=== PATIENT | male | born 1960 | race Caucasian/White ===

== ENCOUNTER 2017-08-01 07:09 | Day surgery (SDC) | payer OTHER ==
[2017-08-01] MEDS ORDERED: Lactated Ringer's 500 ML IV ONE (08:06)
[2017-08-01] MEDS ORDERED: Midazolam 2 MG/2 ML VIAL ONE (09:43)
[2017-08-01] MEDS ORDERED: Propofol 10 mg/ml Inj (20 ML) ONE (09:43)
[2017-08-01 10:33] VITALS: BP 119/64; PULSE 72; RESP 17; TEMP 98; O2SAT 100
== END 2017-08-01 10:35 | disposition home or self-care (01) ==
LOC: H.ENDO 07:09
PROVIDERS: ATTEND Internal Medicine Gastroenterology
DX: Z12.11 Encounter for screening for malignant neoplasm of colon (principal); K64.8 Other hemorrhoids; F31.9 Bipolar disorder, unspecified
CPT/HCPCS: 45378; J2250; J2704; J7120

== ENCOUNTER 2018-04-16 15:08 | Inpatient (IN) | payer MEDICAID, OTHER ==
--- NOTE | 2018-04-16 15:19 | ED PDOC ---
HPI: Psych/Substance Abuse Time Seen by Provider: 04/16/18 15:16 Chief Complaint (Nursing): Psychiatric Evaluation Chief Complaint (Provider): crisis eval History Per: Patient Additional Complaint(s): 58 year old male presents to ED for crisis eval. Patient was sent by mental health clinic for evaluation of possible suicidal ideation. Patient told counselor at clinic that he a dream of committing suicide. Upon arrival to ED patient denies any suicidal or homicidal ideation. He offers no medical complaints at this time. Past Medical History Reviewed: Historical Data, Nursing Documentation, Vital Signs Vital Signs: Last Vital Signs Temp 97.8 F 04/16/18 15:11 Pulse 81 04/16/18 15:11 Resp 18 04/16/18 15:11 BP 139/79 04/16/18 15:11 Pulse Ox 100 04/16/18 15:11 - Medical History PMH: Bipolar Disorder, Depression, Hypothyroidism - Family History Family History: States: No Known Family Hx - Living Arrangements Living Arrangements: With Family - Home Medications Home Medications: Ambulatory Orders Medication Instructions Recorded Unobtainable 08/01/17 - Allergies Allergies/Adverse Reactions: Allergies Allergy/AdvReac Type Severity Reaction Status Date / Time No Known Allergies Allergy Verified 04/16/18 15:11 Review of Systems ROS Statement: Except As Marked, All Systems Reviewed And Found Negative Psych: Positive for: Other (sent by mental health clinic for crisis eval) Physical Exam - Reviewed Nursing Documentation Reviewed: Yes Vital Signs Reviewed: Yes - Physical Exam Appears: Positive for: Well, Non-toxic, No Acute Distress Skin: Positive for: Normal Color. Negative for: Rash Eye Exam: Positive for: Normal appearance Cardiovascular/Chest: Positive for: Regular Rate, Rhythm Respiratory: Positive for: Normal Breath Sounds. Negative for: Wheezing, Respiratory Distress Neurologic/Psych: Positive for: Alert, Oriented - Laboratory Results Result Diagrams: 04/16/18 17:59 04/16/18 17:59 - ECG Interpretation Of ECG: NSR 66 bpm, no acute finding, reviewed by PA and ED attending O2 Sat by Pulse Oximetry: 100 Pulse Ox Interpretation: Normal - Other Rad CXR X-Ray: Interpreted by Me, Viewed By Me X-Ray Interpretation: no acute finding Medical Decision Making Medical Decision Makin58 year old here for crisis eval Plan: 1:1 observation Crisis consult CBC CMP BAL UDS UA CXR EKG As per crisis counselor and psychiatrist manager distribution, Dr. Reyes, patient does meet criteria for admission. Patient agrees to stay and signed himself in. Patient is medically stable for psychiatric admission. Disposition - Clinical Impression Clinical Impression: Schizoaffective disorder - Patient ED Disposition Is Patient to be Admitted: Yes - Disposition Disposition Time: 18:54 Condition: FAIR - Pt Status Changed To: Hospital Disposition Of: Inpatient - Admit Certification Admit to Inpatient:: After my assessment, the patient will require hospitalization for at least two midnights. This is because of the severity of symptoms shown, intensity of services needed, and/or the medical risk in this patient being treated as an outpatient. - POA Present On Arrival: None Results - Lab Results Lab Results: 04/16/18 04/16/18 04/16/18 17:59 17:59 17:59 WBC 8.2 RBC 5.45 Hgb 16.2 Hct 48.5 MCV 89.0 MCH 29.8 MCHC 33.5 RDW 14.4 Plt Count 280 MPV 8.7 Neut % (Auto) 54.0 Lymph % (Auto) 33.8 [place] % (Auto) 8.7 Eos % (Auto) 2.8 Baso % (Auto) 0.7 Neut # (Auto) 4.5 Lymph # (Auto) 2.8 [place] # (Auto) 0.7 Eos # (Auto) 0.2 Baso # (Auto) 0.1 Sodium Potassium Chloride Carbon Dioxide Anion Gap BUN Creatinine Est GFR ( Amer) Est GFR (Non-Af Amer) Random Glucose Calcium Total Bilirubin AST ALT Alkaline Phosphatase Total Protein Albumin Globulin Albumin/Globulin Ratio Urine Color Yellow Urine Clarity Clear Urine pH 5.0 Ur Specific [place] 1.013 Urine Protein Negative Urine Glucose (UA) Neg Urine Ketones Negative Urine Blood Negative Urine Nitrate Negative Urine Bilirubin Negative Urine Urobilinogen 0.2-1.0 Ur Leukocyte Esterase Neg Urine RBC (Auto) 1 Urine Microscopic WBC < 1 Urine Opiates Screen Negative Urine Methadone Screen Negative Ur Barbiturates Screen Negative Ur Phencyclidine Scrn Negative Ur Amphetamines Screen Negative U Benzodiazepines Scrn Negative U Oth Cocaine Metabols Negative U Cannabinoids Screen Negative Alcohol, Quantitative 04/16/18 17:59 WBC RBC Hgb Hct MCV MCH MCHC RDW Plt Count MPV Neut % (Auto) Lymph % (Auto) [place] % (Auto) Eos % (Auto) Baso % (Auto) Neut # (Auto) Lymph # (Auto) [place] # (Auto) Eos # (Auto) Baso # (Auto) Sodium 141 Potassium 3.9 Chloride 104 Carbon Dioxide 25 Anion Gap 16 BUN 15 Creatinine 0.9 Est GFR ( Amer) > 60 Est GFR (Non-Af Amer) > 60 Random Glucose 91 Calcium 9.2 Total Bilirubin 0.6 AST 29 ALT 42 Alkaline Phosphatase 69 Total Protein 8.0 Albumin 4.4 Globulin 3.6 Albumin/Globulin Ratio 1.2 Urine Color Urine Clarity Urine pH Ur Specific Drake Urine Protein Urine Glucose (UA) Urine Ketones Urine Blood Urine Nitrate Urine Bilirubin Urine Urobilinogen Ur Leukocyte Esterase Urine RBC (Auto) Urine Microscopic WBC Urine Opiates Screen Urine Methadone Screen Ur Barbiturates Screen Ur Phencyclidine Scrn Ur Amphetamines Screen U Benzodiazepines Scrn U Oth Cocaine Metabols U Cannabinoids Screen Alcohol, Quantitative < 10
--- NOTE | 2018-04-16 17:44 | RAD ---
HISTORY: clearance COMPARISON: Chest radiograph dated 03/13/2013. FINDINGS: LUNGS: No active pulmonary disease. PLEURA: No significant pleural effusion identified, no pneumothorax apparent. CARDIOVASCULAR: Normal. OSSEOUS STRUCTURES: Unchanged. VISUALIZED UPPER ABDOMEN: Normal. OTHER FINDINGS: None. IMPRESSION: No active disease.
[2018-04-16 18:07] LABS: BASO # 0.1 K/uL (0.0-0.2); BASO % 0.7 % (0.0-2.0); EOS # 0.2 K/uL (0.0-0.7); EOS % 2.8 % (0.0-4.0); HEMOGLOBIN 16.2 g/dL (12.0-18.0); LYMPH # 2.8 K/uL (1.0-4.3); LYMPH % 33.8 % (20.0-40.0); MEAN CORPUSCULAR HEMOGLOBIN 29.8 pg (27.0-31.0); MEAN CORPUSCULAR HGB CONC 33.5 g/dL (33.0-37.0); MEAN PLATELET VOLUME 8.7 fl (7.2-11.7); MONO # 0.7 K/uL (0.0-0.8); MONO % 8.7 % (0.0-10.0); NEUT # 4.5 K/uL (1.8-7.0); RBC 5.45 Mil/uL (4.40-5.90); RED CELL DISTRIBUTION WIDTH 14.4 % (11.5-14.5); WHITE BLOOD COUNT 8.2 K/uL (4.8-10.8)
[2018-04-16 18:11] LABS: URINE BILIRUBIN NEGATIVE (NEGATIVE); URINE BLOOD NEGATIVE (NEGATIVE); URINE CLARITY CLEAR (Clear); URINE COLOR YELLOW (YELLOW); URINE GLUCOSE (UA) NEG (Normal); URINE LEUKOCYTE ESTERASE NEG Leu/uL (Negative); URINE PROTEIN NEGATIVE (NEGATIVE); URINE UROBILINOGEN 0.2-1.0 mg/dL (0.2-1.0)
[2018-04-16 18:20] LABS: ALB/GLOB RATIO 1.2 (1.0-2.1); ALBUMIN 4.4 g/dL (3.5-5.0); ALT/SGPT 42 U/L (21-72); AST/SGOT 29 U/L (17-59); BLOOD UREA NITROGEN 15 mg/dl (9-20); CALCIUM 9.2 mg/dL (8.4-10.2); GFR AFRICAN-AMERICAN > 60; GFR NON-AFRICAN AMERICAN > 60
[2018-04-16 18:46] LABS: BARBITURATES, UR NEGATIVE (NEGATIVE); BENZODIAZEPINES, UR NEGATIVE (NEGATIVE); OPIATES, UR NEGATIVE (NEGATIVE); PHENCYCLIDINE, UR NEGATIVE (NEGATIVE)
[2018-04-16] MEDS ORDERED: DiphenhydrAMINE 50 mg/ml Inj IM PRN (20:55)
[2018-04-16] MEDS ORDERED: Magnesium Hydroxide Susp 30 ml UD PO PRN (20:55)
[2018-04-16] MEDS ORDERED: Alum-Mag Hydrox-Simethicone Susp (30 mL) PO PRN (20:55)
--- NOTE | 2018-04-16 23:36 | PCM.BM ---
<Nelson Young - Last Filed: 04/16/18 23:34> Treatment Plan Problems - Problems identified on initial assessmt Anxiety Date Initiated: 04/16/18 Time Initiated: 23:36 Assessment reference: NA Status: Active Hopelessness/Helplessness Date Initiated: 04/16/18 Time Initiated: 23:36 Assessment reference: NA Status: Active Treatment assets and liabiliti Patient Assests: cooperative, ADL independent, negotiates basic needs, cognitively intact Patient Liabilities: financial problems, relationship conflicts, language/speech - Milieu Protocol Maintain good personal hygiene: daily Encourage regular showers, daily Remind patient to perform daily oral care, daily Assist patient to perform ADL's Conduct patient checks and document Observation sheet: Q15 minutes Maintain personal safety: every shift Educate patient to report safety concerns to staff, every shift Monitor environment for contraband/sharps Medication safety: Monitor for expected outcome, potential side effects: every shift, Assess barriers to learning: every shift, Assess readiness for medication education: every shift <Viridiana Back - Last Filed: 04/19/18 09:34> - Diagnosis (1) Schizoaffective disorder Status: Chronic Interventions: Medication management, Individual and group therapy, Psychoeducation 04/19/18 09:34 <Fatoumata Castillo - Last Filed: 04/19/18 16:27> Treatment assets and liabiliti Patient Assests: adapts well, cooperative, self-reliant, ADL independent, good support system, negotiates basic needs, good past tx response, cognitively intact Patient Liabilities: live alone (lives in close quarters with family- discord with oldest daughter and son in-law), physical pain, relationship conflicts, substance abuse (pt reports maintained sobriety for close to 6 years), medical problems Family Contact Family involvement: Family/SO is involved Family contact: Patient agrees to contact, Family has been contacted by patient , Telephone contact initiated by staff Family contact name: Savanna(daughter)([phone]) Family contacted how many times per week?: 2 Family contact comment: Group Tester placed call to pts daughter to discuss precursors to pts admission, collect further necessary collateral information and address any family concerns Group Tester left brief voicemail on unidentified voicemail with call back number.Group Tester awaiting response. - Outside Agency Agency 1 Care involvment: Following patient during stay, Information-sharing, Other Agency contact name: [facility] Agency contact number: [phone] - Goals for Treatment Patient goals for treatment: Patient to continue stabilization on 3NP through medication management and group/supportive therapy to address sxs of depression , improve sleep and eliminate HI. Patient to be encouraged to attend groups regularly to promote self-awareness, maintained sobriety, and improve insight, compliance, coping skills and self-esteem. Patient to be provided with referral for appropriate level of aftercare to reduce risk of future hospitalizations and ensure safety in the community. Discharge/Continuing Care - Education Needs Education Needs: Patient Medication, Patient Diagnosis/Disease Process, Patient Coping Skills, Patient Community resources, Patient Aftercare Safety Plan - Discharge Discharge Criteria: Tolerates medication w/o severe side effects, Free of Suicidal thoughts, Free of Homicidal thoughts, Normal sleep pattern, Ability to care for self, Reduction of target symptoms Discharge to:: Home, With Family, Other ([facility] vs Adult Medical Daycare) - Treatment Team Participation Patient/Family/SO Statement: 04/19/18 16:27 Patient invited to tx team this morning to discuss progress on 3NP and tx goals. Pt. AOX4 with broad affect and fair eye contact. Thoughts clear and connected. Speech: normal rate and tone, hesitant at times. Pt. well-groomed with fair ADLs. Pt. denies homicidal dreams since admission. Pt. appears internally preoccupied at times but denies AH/VH. Pt. reports improvement in sxs of depression and anxiety since admission. Pt. is discharged focused and appears to be minimizing precursors to hospitalization However, pt. receptive to feedback and tx team recommendations (cross taper Risperdal to Seroquel). Insight/focus is limited. Coping skills/Judgment fair. Pt. denies SI/HI and is able to contract for safety on 3NP. Discussed with Family/SO: No Was Patient/Family/SO present at Treatment Team Meeting: Yes
[2018-04-17 09:09] LABS: T4 7.75 ug/dl (5.5-11.0)
--- NOTE | 2018-04-17 15:07 | CARD ---
APPROVED REPORT EKG Measurement Heart [id number] <Conclusion> Normal sinus rhythm Normal ECG
--- NOTE | 2018-04-17 15:20 | PCM.PSYCH ---
Initial Psychiatric Evaluation - Initial Psychiatric Evaluation Type of Admission: Voluntary Legal Status: Capacity Chief Complaint (in patient's own words): I have been having bad thoughts Patient's Reaction to Hospitalization: pt requested help History of Present Illness and Precipitating Events: pt is 58 ys old male unclear previous psychiatric diagnosis , one hospitalization ten years ago, in [facility]. currently being treated at [facility] in [place] referred to ER by his psychiatrist after reporting command auditory hallucinations and homicidal ideation towards family members on unit pt continues to report non command auditory hallucinations of noises , guarded and evasive denied command hallucinations, denied active suicidal or homicidal intennt or plan on the unit Current Medications: Active Medications Generic Name Dose Route Start Last Admin Trade Name Freq PRN Reason Stop Dose Admin Acetaminophen 650 mg 04/16/18 20:55 Tylenol 325mg Tab PO Q4 PRN pain level 4-7 Al Hydrox/Mg Hydrox/Simethicone 30 ml 04/16/18 20:55 Maalox Plus 30 Ml PO Q4 PRN Dyspepsia Benztropine Mesylate 0.5 mg 04/17/18 17:00 Cogentin PO BID LIBAN Diphenhydramine HCl 50 mg 04/16/18 20:55 Benadryl IM Q6 PRN Extrapyramidal S/S Unable PO Diphenhydramine HCl 50 mg 04/16/18 20:55 Benadryl PO Q6 PRN Extrapyramidal Symptoms Diphenhydramine HCl 50 mg 04/16/18 20:58 04/17/18 02:37 Benadryl PO 50 mg HS PRN Administration Sleep Divalproex Sodium 500 mg 04/17/18 17:00 Gopi Scott(*Bid*) PO BID LIBAN Haloperidol 5 mg 04/16/18 20:55 Haldol PO Q4 PRN Agitation Haloperidol Lactate 5 mg 04/16/18 20:55 Haldol IM Q4 PRN Agitation, Unable to Take PO Lorazepam 1 mg 04/16/18 20:55 Ativan IM Q6 PRN Anxiety/Agitation,Unable PO Lorazepam 1 mg 04/16/18 20:55 04/16/18 21:58 Ativan PO 1 mg Q6 PRN Administration Anxiety/Agitation Magnesium Hydroxide 30 ml 04/16/18 20:55 Milk Of Magnesia PO HS PRN Constipation Risperidone 2 mg 04/17/18 17:00 Risperdal M-Tab PO BID [facility] Past Psychiatric History - Past Psychiatric History Explanation of prior treatment: one hospitalization ten years ago History of ETOH/Drug Use: denied Pertinent Medical Hx (Current Medical&Sleep Prob, Allergies): Allergies Allergy/AdvReac Type Severity Reaction Status Date / Time No Known Allergies Allergy Verified 04/16/18 15:11 Albuterol Sulfate [Ventolin Hfa] 1 puff IH PRN PRN 04/16/18 Benztropine [Benztropine Mesylate] 1 mg PO BID 04/16/18 Levothyroxine [Synthroid] 50 mcg PO DAILY 04/16/18 Mometasone/Formoterol [Dulera 100 Mcg/5 Mcg Inhaler] 1 inh INH DAILY 04/16/18 QUEtiapine [SEROquel] 100 mg PO BID 04/16/18 Quetiapine Fumarate [Seroquel] 400 mg PO HS 04/16/18 Risperidone [Risperdal] 2 mg PO BID 04/16/18 Sertraline [Zoloft] 100 mg PO BID 04/16/18 Testosterone Cypionate [Novaplus Depo-Testosterone] 100 mg IM WM 04/16/18 Tiotropium [place] Inhaler [Spiriva Inhalation Handihaler Device] 1 inhaler INH DAILY 04/16/18 clonazePAM [clonAZEPAM] 1 mg PO TID 04/16/18 Mental Status Examination - Personal Presentation Personal Presentation: Looks older than stated age - Affect Affect: Constricted, Depressed - Motor Activity Motor Activity: Calm - Reliability in Providing Information Reliability in Providing Information: Poor, due to alteration in thoughts, Poor , due to altered mood - Speech Speech: Tangential - Mood Mood: Anxious - Formal Thought Process Formal Thought Process: Hallucinations, Paranoia Additional comments: pt reported non command auditroy hallucinations - Obsessions/Compulsions Obsessions: No Compulsions: No - Cognitive Functions Orientation: Person, Place Sensorium: Alert Attention/Concentration: Easily distracted Judgement: Imparied, as evidence by: Poor judgement, Imparied, as evidence by: Lack of insight into illness - Strength & Assets Inventory Strength & Assets Inventory: Family support - Limitations Additional comments: financial difficulties DSM 5 DX - DSM 5 DSM 5 Diagnosis: schizoaffective disorder bipolar type - Recommended/Plan of Treatment Treatment Recommendations and Plan of Treatment: start risperidone 1mg bid depakote 500mg bid group and supportive therapy
[2018-04-17] MEDS ORDERED: Risperidone M TAB 2 MG PO SCH (17:00)
[2018-04-17] MEDS: Risperidone M tab 1 MG PO SCH (18:00)
[2018-04-17] MEDS: Divalproex 500 mg DR(BID formulation) PO SCH (18:02)
--- NOTE | 2018-04-17 18:02 | CP.PCM.CON ---
History of Present Illness - History of Present Illness History of Present Illness: 58 yo male with no significant COPD and Hypothyroidism admitted to psyche unit because of auditory hallucination and homicidal ideation towards family members. Review of Systems - Review of Systems All systems: reviewed and no additional remarkable complaints except (aside from those mentioned above, 12 point system review were negative by me) Past Patient History - Tetanus Immunizations Tetanus Immunization: Unknown - Past Medical History & Family History Past Medical History?: Yes - Past Social History Smoking Status: Never Smoked Chewing Tobacco Use: No Cigar Use: No Alcohol: None Drugs: Denies - CARDIAC Hx Cardiac Disorders: No Hx Hypertension: No - PULMONARY Hx Respiratory Disorders: Yes Hx Chronic Obstructive Pulmonary Disease (COPD): Yes - NEUROLOGICAL Hx Neurological Disorder: No HX Cerebrovascular Accident: No Hx Seizures: No - HEENT Hx HEENT Problems: No - RENAL Hx Chronic Kidney Disease: No - ENDOCRINE/METABOLIC Hx Endocrine Disorders: Yes Hx Hypothyroidism: Yes - HEMATOLOGICAL/ONCOLOGICAL Hx Blood Disorders: No Hx Cancer: No Hx Human Immunodeficiency Virus (HIV): No - INTEGUMENTARY Hx Dermatological Problems: No - MUSCULOSKELETAL/RHEUMATOLOGICAL Hx Musculoskeletal Disorders: No - GASTROINTESTINAL Hx Gastrointestinal Disorders: No - GENITOURINARY/GYNECOLOGICAL Hx Genitourinary Disorders: No Hx Sexually Transmitted Disorders: No - PSYCHIATRIC Hx Substance Use: No - SURGICAL HISTORY Hx Surgeries: No - ANESTHESIA Hx Anesthesia: No Meds Allergies/Adverse Reactions: Allergies Allergy/AdvReac Type Severity Reaction Status Date / Time No Known Allergies Allergy Verified 04/16/18 15:11 - Medications Medications: Current Medications Acetaminophen (Tylenol 325mg Tab) 650 mg PO Q4 PRN PRN Reason: pain level 4-7 Al Hydrox/Mg Hydrox/Simethicone (Maalox Plus 30 Ml) 30 ml PO Q4 PRN PRN Reason: Dyspepsia Benztropine Mesylate (Cogentin) 0.5 mg PO BID LIBAN Diphenhydramine HCl (Benadryl) 50 mg IM Q6 PRN PRN Reason: Extrapyramidal S/S Unable PO Diphenhydramine HCl (Benadryl) 50 mg PO Q6 PRN PRN Reason: Extrapyramidal Symptoms Diphenhydramine HCl (Benadryl) 50 mg PO HS PRN PRN Reason: Sleep Last Admin: 04/17/18 02:37 Dose: 50 mg Divalproex Sodium (Depakote Dr(*Bid*)) 500 mg PO BID [facility] Haloperidol (Haldol) 5 mg PO Q4 PRN PRN Reason: Agitation Haloperidol Lactate (Haldol) 5 mg IM Q4 PRN PRN Reason: Agitation, Unable to Take PO Loperamide HCl (Imodium) 2 mg PO QID PRN PRN Reason: Diarrhea Lorazepam (Ativan) 1 mg IM Q6 PRN PRN Reason: Anxiety/Agitation,Unable PO Lorazepam (Ativan) 1 mg PO Q6 PRN PRN Reason: Anxiety/Agitation Last Admin: 04/16/18 21:58 Dose: 1 mg Magnesium Hydroxide (Milk Of Magnesia) 30 ml PO HS PRN PRN Reason: Constipation Risperidone (Risperdal M-Tab) 1 mg PO BID LIBAN Physical Exam - Constitutional Appears: No Acute Distress - Head Exam Head Exam: ATRAUMATIC - Eye Exam Eye Exam: absent: Scleral icterus - ENT Exam ENT Exam: Mucous Membranes Moist - Neck Exam Neck exam: Negative for: Meningismus - Respiratory Exam Respiratory Exam: absent: Rales, Rhonchi, Wheezes, Respiratory Distress - Cardiovascular Exam Cardiovascular Exam: REGULAR RHYTHM, +S1, +S2 - GI/Abdominal Exam GI & Abdominal Exam: Soft. absent: Tenderness - Rectal Exam Rectal Exam: Deferred - Extremities Exam Extremities exam: Negative for: calf tenderness, pedal edema - Back Exam Back exam: NORMAL INSPECTION - Neurological Exam Neurological exam: Alert, Oriented x3 - Psychiatric Exam Psychiatric exam: Normal Affect - Skin Skin Exam: Dry, Intact Results - Vital Signs Recent Vital Signs: Last Vital Signs Temp 97.3 F L 04/17/18 17:00 Pulse 60 04/17/18 17:00 Resp 19 04/17/18 17:00 BP 151/98 H 04/17/18 17:00 Pulse Ox 99 04/16/18 20:34 - Labs Result Diagrams: 04/16/18 17:59 04/16/18 17:59 Labs: Laboratory Results - last 24 hr 04/16/1818 04/16/18 17:59 17:59 17:59 WBC 8.2 RBC 5.45 Hgb 16.2 Hct 48.5 MCV 89.0 MCH 29.8 MCHC 33.5 RDW 14.4 Plt Count 280 MPV 8.7 Neut % (Auto) 54.0 Lymph % (Auto) 33.8 [place] % (Auto) 8.7 Eos % (Auto) 2.8 Baso % (Auto) 0.7 Neut # (Auto) 4.5 Lymph # (Auto) 2.8 [place] # (Auto) 0.7 Eos # (Auto) 0.2 Baso # (Auto) 0.1 Sodium 141 Potassium 3.9 Chloride 104 Carbon Dioxide 25 Anion Gap 16 BUN 15 Creatinine 0.9 Est GFR ( Amer) > 60 Est GFR (Non-Af Amer) > 60 Random Glucose 91 Hemoglobin A1c Calcium 9.2 Total Bilirubin 0.6 AST 29 ALT 42 Alkaline Phosphatase 69 Total Protein 8.0 Albumin 4.4 Globulin 3.6 Albumin/Globulin Ratio 1.2 Triglycerides Cholesterol LDL Cholesterol Direct HDL Cholesterol Thyroxine (T4) TSH 3rd Generation Urine Color Urine Clarity Urine pH Ur Specific [place] Urine Protein Urine Glucose (UA) Urine Ketones Urine Blood Urine Nitrate Urine Bilirubin Urine Urobilinogen Ur Leukocyte Esterase Urine RBC (Auto) Urine Microscopic WBC Urine Opiates Screen Negative Urine Methadone Screen Negative Ur Barbiturates Screen Negative Ur Phencyclidine Scrn Negative Ur Amphetamines Screen Negative U Benzodiazepines Scrn Negative U Oth Cocaine Metabols Negative U Cannabinoids Screen Negative Alcohol, Quantitative < 10 RPR 04/16/18 04/17/18 04/17/18 17:59 07:49 07:49 WBC RBC Hgb Hct MCV MCH MCHC RDW Plt Count MPV Neut % (Auto) Lymph % (Auto) [place] % (Auto) Eos % (Auto) Baso % (Auto) Neut # (Auto) Lymph # (Auto) [place] # (Auto) Eos # (Auto) Baso # (Auto) Sodium Potassium Chloride Carbon Dioxide Anion Gap BUN Creatinine Est GFR ( Amer) Est GFR (Non-Af Amer) Random Glucose Hemoglobin A1c 5.8 Calcium Total Bilirubin AST ALT Alkaline Phosphatase Total Protein Albumin Globulin Albumin/Globulin Ratio Triglycerides 287 H Cholesterol 163 LDL Cholesterol Direct 81 HDL Cholesterol 20 L Thyroxine (T4) 7.75 TSH 3rd Generation 4.43 Urine Color Yellow Urine Clarity Clear Urine pH 5.0 Ur Specific [place] 1.013 Urine Protein Negative Urine Glucose (UA) Neg Urine Ketones Negative Urine Blood Negative Urine Nitrate Negative Urine Bilirubin Negative Urine Urobilinogen 0.2-1.0 Ur Leukocyte Esterase Neg Urine RBC (Auto) 1 Urine Microscopic WBC < 1 Urine Opiates Screen Urine Methadone Screen Ur Barbiturates Screen Ur Phencyclidine Scrn Ur Amphetamines Screen U Benzodiazepines Scrn U Oth Cocaine Metabols U Cannabinoids Screen Alcohol, Quantitative RPR 04/17/18 07:49 WBC RBC Hgb Hct MCV MCH MCHC RDW Plt Count MPV Neut % (Auto) Lymph % (Auto) [place] % (Auto) Eos % (Auto) Baso % (Auto) Neut # (Auto) Lymph # (Auto) [place] # (Auto) Eos # (Auto) Baso # (Auto) Sodium Potassium Chloride Carbon Dioxide Anion Gap BUN Creatinine Est GFR ( Amer) Est GFR (Non-Af Amer) Random Glucose Hemoglobin A1c Calcium Total Bilirubin AST ALT Alkaline Phosphatase Total Protein Albumin Globulin Albumin/Globulin Ratio Triglycerides Cholesterol LDL Cholesterol Direct HDL Cholesterol Thyroxine (T4) TSH 3rd Generation Urine Color Urine Clarity Urine pH Ur Specific [place] Urine Protein Urine Glucose (UA) Urine Ketones Urine Blood Urine Nitrate Urine Bilirubin Urine Urobilinogen Ur Leukocyte Esterase Urine RBC (Auto) Urine Microscopic WBC Urine Opiates Screen Urine Methadone Screen Ur Barbiturates Screen Ur Phencyclidine Scrn Ur Amphetamines Screen U Benzodiazepines Scrn U Oth Cocaine Metabols U Cannabinoids Screen Alcohol, Quantitative RPR Nonreactive Assessment & Plan (1) Schizoaffective disorder Status: Chronic Comment: psyche is managing (2) COPD (chronic obstructive pulmonary disease) Status: Chronic Comment: asymptomatic (3) Hypothyroid Status: Chronic Comment: continue Levothyroxine
[2018-04-17] MEDS ORDERED: Albuterol HFA 90 mcg/actuation (8 g) IH PRN (18:18)
[2018-04-17] MEDS ORDERED: TESTOSTERONE CYPIONATE 100 MG IM SCH (18:30)
[2018-04-17] MEDS: Fluticasone-Salmeterol 100-50mcg Diskus INH SCH (21:16)
[2018-04-17] MEDS: Pantoprazole 40 mg EC Tab PO SCH (21:16)
[2018-04-18 01:17] VITALS: O2SAT 100
[2018-04-18] MEDS: Levothyroxine 50 MCG TAB PO SCH (06:52)
[2018-04-18] MEDS: Divalproex 500 mg DR(BID formulation) PO SCH ×2 (09:26→18:07)
[2018-04-18] MEDS: Risperidone M tab 1 MG PO SCH ×2 (09:26→18:07)
[2018-04-18] MEDS: Fluticasone-Salmeterol 100-50mcg Diskus INH SCH ×2 (09:27→21:10)
--- NOTE | 2018-04-18 11:04 | PCM.PYCHPN ---
Psychiatric Progress Note - Psychiatric Progress Note Patient seen today, length of contact: pt evaluated, chart reviewed Patient Chief Complaint: I am not hearing voices now Problems Identified/Issues Discussed: pt evaluated seen in bed, , guarded, minimizing symptoms that led to admission, reported clearing off of the audtory hallucinations, no urrent anger episodes, no reported side effects of medications, denied any current suicidal or homicidal ideation Medical Problems: one hospitalization ten years ago DSM 5 Symptoms Update: schizoaffective disorder Medication Change: No Medical Record Reviewed: Yes Mental Status Examination - Cognitive Function Orientation: Person, Place Attention: WNL Concentration: WNL Association: [facility] Fund of Knowledge: [facility] Decription of patient's judgement and insights: poor insight and judgment - Mood Mood: Anxious - Affect Affect: Constricted, Depressed - Speech Speech: Soft - Formal Thought Process Formal Thought Process: Hallucinations, Paranoia Psychotic Thoughts and Behaviors: pt reported clearing off of the AH - Suicidal Ideation Suicidal Ideation: No - Homicidal Ideation Homicidal Ideation: No Goal/Treatment Plan - Goal/Treatment Plan Need for Continued Stay: Severe depression anxiety, Discharge may exacerbated symptoms Progress Toward Problem(s) and Goals/Treatment Plan: risperidone 1mg bid, COGENTIN 0.5 MG BID depakote 500mg bid, follow up on the depakote level group and supportive therapy
[2018-04-18] MEDS: Tiotropium 18 mcg Cap For Inhalation INH SCH (15:39)
[2018-04-19] MEDS: Levothyroxine 50 MCG TAB PO SCH (06:41)
[2018-04-19] MEDS: Divalproex 500 mg DR(BID formulation) PO SCH ×2 (09:01→21:31)
[2018-04-19] MEDS: Risperidone M tab 1 MG PO SCH (09:02)
[2018-04-19] MEDS: Pantoprazole 40 mg EC Tab PO SCH (09:02)
[2018-04-19] MEDS: Fluticasone-Salmeterol 100-50mcg Diskus INH SCH ×2 (09:03→21:31)
--- NOTE | 2018-04-19 09:33 | PCM.PYCHPN ---
Psychiatric Progress Note - Psychiatric Progress Note Patient seen today, length of contact: Patient evaluated, case discussed with team, chart reviewed Patient Chief Complaint: "I had bad dreams before." Problems Identified/Issues Discussed: Patient is guarded and minimizing symptoms. He reports that he is feeling fine and was only brought to the hospital for bad dream, which he states he no longer has. He denies AH/VH/SI/HI, but seems internally preoccupied and has poverty of speech. Patient states that he prefers to take Seroquel over Risperdal. No current adverse effects to medications reported. Medication Change: Yes (Cross taper Risperdal and Seroquel) Medical Record Reviewed: Yes Consults ordered or reviewed: Medicine consult Mental Status Examination - Cognitive Function Orientation: Person, Place, Situation Memory: Intact Attention: WNL Concentration: WNL Association: WNL Fund of Knowledge: WN Decription of patient's judgement and insights: Poor I/J - Mood Mood: Anxious - Affect Affect: Constricted - Speech Speech: Soft - Formal Thought Process Formal Thought Process: Hallucinations, Paranoia Psychotic Thoughts and Behaviors: Denies acute AH/VH; but is likely paranoia w/ active hallucinations; patient is guarded and withholding - Suicidal Ideation Suicidal Ideation: No - Homicidal Ideation Homicidal Ideation: No Goal/Treatment Plan - Goal/Treatment Plan Need for Continued Stay: Remain at risks for inpatient hospitalization, Severe depression anxiety, Discharge may exacerbated symptoms Progress Toward Problem(s) and Goals/Treatment Plan: Schizoaffective Disorder -Medication management -Individual and group therapy -Psychoeducation -Disposition planning Estimated Date of D/C: 04/24/18
[2018-04-19] MEDS: Tiotropium 18 mcg Cap For Inhalation INH SCH (17:05)
[2018-04-20] MEDS: Levothyroxine 50 MCG TAB PO SCH (08:28)
[2018-04-20] MEDS: Fluticasone-Salmeterol 100-50mcg Diskus INH SCH ×2 (08:28→21:07)
[2018-04-20] MEDS: Divalproex 500 mg DR(BID formulation) PO SCH ×2 (08:28→17:35)
[2018-04-20] MEDS: Pantoprazole 40 mg EC Tab PO SCH (08:28)
[2018-04-20] MEDS: Tiotropium 18 mcg Cap For Inhalation INH SCH (08:30)
--- NOTE | 2018-04-20 15:34 | PCM.PYCHPN ---
Psychiatric Progress Note - Psychiatric Progress Note Patient seen today, length of contact: Patient evaluated, case discussed with team, chart reviewed Patient Chief Complaint: "I had bad dreams before." Problems Identified/Issues Discussed: Patient continues to be guarded and minimizing symptoms. He denies "bad dreams. " He denies AH/VH/SI/HI. No current adverse effects to medications reported. Medication Change: No Medical Record Reviewed: Yes Consults ordered or reviewed: Medicine consult Mental Status Examination - Cognitive Function Orientation: Person, Place, Situation Memory: Intact Attention: WNL Concentration: WNL Association: WNL Fund of Knowledge: [facility] Decription of patient's judgement and insights: Poor I/J - Mood Mood: Anxious - Affect Affect: Constricted - Speech Speech: Soft - Formal Thought Process Formal Thought Process: Paranoia Psychotic Thoughts and Behaviors: Denies acute AH/VH; but is possibly paranoid w/ active hallucinations; patient is guarded and withholding - Suicidal Ideation Suicidal Ideation: No - Homicidal Ideation Homicidal Ideation: No Goal/Treatment Plan - Goal/Treatment Plan Need for Continued Stay: Remain at risks for inpatient hospitalization, Severe depression anxiety, Discharge may exacerbated symptoms Progress Toward Problem(s) and Goals/Treatment Plan: Schizoaffective Disorder -Medication management -Individual and group therapy -Psychoeducation -Disposition planning Estimated Date of D/C: 04/23/18
[2018-04-21] MEDS: Divalproex 500 mg DR(BID formulation) PO SCH ×2 (09:17→17:10)
[2018-04-21] MEDS: Tiotropium 18 mcg Cap For Inhalation INH SCH (09:17)
[2018-04-21] MEDS: Fluticasone-Salmeterol 100-50mcg Diskus INH SCH ×2 (09:18→21:19)
[2018-04-21] MEDS: Pantoprazole 40 mg EC Tab PO SCH (09:18)
[2018-04-21 10:10] VITALS: RESP 18
--- NOTE | 2018-04-21 10:50 | PCM.PYCHPN ---
Psychiatric Progress Note - Psychiatric Progress Note Patient seen today, length of contact: Patient evaluated, case discussed with team, chart reviewed Patient Chief Complaint: "I had bad dreams before." Problems Identified/Issues Discussed: No new events overnight. No episodes of violence or aggression. Patient continues to be guarded and minimizing symptoms. He denies "bad dreams." He denies AH/VH/SI/HI. No current adverse effects to medications reported. Medication Change: No Medical Record Reviewed: Yes Mental Status Examination - Cognitive Function Orientation: Person, Place, Situation Memory: Intact Attention: WNL Concentration: WNL Association: WNL Fund of Knowledge: [facility] Decription of patient's judgement and insights: Poor I/J - Mood Mood: Anxious - Affect Affect: Constricted - Speech Speech: Soft - Formal Thought Process Formal Thought Process: Paranoia Psychotic Thoughts and Behaviors: Denies acute AH/VH; but is possibly paranoid w/ active hallucinations; patient is guarded and withholding - Suicidal Ideation Suicidal Ideation: No - Homicidal Ideation Homicidal Ideation: No Goal/Treatment Plan - Goal/Treatment Plan Need for Continued Stay: Remain at risks for inpatient hospitalization, Severe depression anxiety, Discharge may exacerbated symptoms Progress Toward Problem(s) and Goals/Treatment Plan: Schizoaffective Disorder -Medication management -Individual and group therapy -Psychoeducation -Disposition planning Estimated Date of D/C: 04/23/18
[2018-04-22] MEDS: Levothyroxine 50 MCG TAB PO SCH (06:22)
[2018-04-22] MEDS: Divalproex 500 mg DR(BID formulation) PO SCH ×2 (08:20→17:02)
[2018-04-22] MEDS: Pantoprazole 40 mg EC Tab PO SCH (08:22)
--- NOTE | 2018-04-22 09:39 | PCM.PYCHPN ---
Psychiatric Progress Note - Psychiatric Progress Note Patient seen today, length of contact: Patient evaluated, case discussed with team, chart reviewed Patient Chief Complaint: "I'm fine." Problems Identified/Issues Discussed: No new events overnight. No episodes of violence or aggression. NO AH/VH/ paranoia/delusions. No depression/anxiety. Patient is improving clinically and is goal oriented towards discharge. No current adverse effects to medications reported. Medication Change: No Medical Record Reviewed: Yes Consults ordered or reviewed: Medicine consult Mental Status Examination - Cognitive Function Orientation: Person, Place, Situation, Time Memory: Intact Attention: WNL Concentration: WNL Association: WN Fund of Knowledge: [facility] Decription of patient's judgement and insights: Improving I/J - Mood Mood: Neutral - Affect Affect: Constricted - Speech Speech: Appropriate - Formal Thought Process Formal Thought Process: No Impairment Psychotic Thoughts and Behaviors: No AH/VH/paranoia/delusions - Suicidal Ideation Suicidal Ideation: No - Homicidal Ideation Homicidal Ideation: No Goal/Treatment Plan - Goal/Treatment Plan Need for Continued Stay: Discharge may exacerbated symptoms Progress Toward Problem(s) and Goals/Treatment Plan: Schizoaffective Disorder; patient improving clinically and will likely be discharged tomorrow; no AH/VH/SI/HI; no episodes of violence of aggression -Continue Depakote 500 mg PO BID -Continue Seroquel 200 mg PO AM 400 mg PO HS -Individual and group therapy -Psychoeducation -Disposition planning Estimated Date of D/C: 04/23/18
[2018-04-22] MEDS: Fluticasone-Salmeterol 100-50mcg Diskus INH SCH ×2 (17:01→21:15)
[2018-04-22] MEDS: Tiotropium 18 mcg Cap For Inhalation INH SCH (17:02)
[2018-04-23] MEDS: Levothyroxine 50 MCG TAB PO SCH (06:24)
[2018-04-23] MEDS: Pantoprazole 40 mg EC Tab PO SCH (08:52)
[2018-04-23] MEDS: Divalproex 500 mg DR(BID formulation) PO SCH (08:52)
[2018-04-23] MEDS: Tiotropium 18 mcg Cap For Inhalation INH SCH (08:53)
[2018-04-23 09:15] VITALS: BP 156/105; PULSE 73; TEMP 95.5
[2018-04-23] MEDS: Fluticasone-Salmeterol 100-50mcg Diskus INH SCH (09:49)
--- NOTE | 2018-04-23 11:17 | PCM.PYCHDC ---
Mental Status Examination - Mental Status Examination Orientation: Person, Place, Situation, Time Memory: Intact Mood: Neutral Affect: Broad Speech: Appropriate Attention: WNL Concentration: WNL Association: WNL Fund of Knowledge: WNL Formal Thought Process: No Impairment Description of patient's judgement and insight: Improved I/J Psychotic Thoughts and Behaviors: No AH/VH/paranoia/delusions Suicidal Ideation: No Current Homicidal Ideation?: No Discharge Summary - Discharge Note Reason for Hospitalization: As per HPI: "pt is 58 ys old male unclear previous psychiatric diagnosis , one hospitalization ten years ago, in [facility]. currently being treated at [facility] in [place] referred to ER by his psychiatrist after reporting command auditory hallucinations and homicidal ideation towards family members on unit pt continues to report non command auditory hallucinations of noises , guarded and evasive denied command hallucinations, denied active suicidal or homicidal intennt or plan on the unit" Consultations:: List each consultation separately and include: 1. Reason for request. 2. Findings. 3. Follow-up Consultations: Medicine consult Summary of Hospital Course include:: 1. Description of specific treatment plan utilized for patients during their course of treatmen. 2. Summarize the time- course for resolution of acute symptoms and/or regressed behaviors. 3. Describe issues identified and worked on during hospitalization. 4. Describe medication utilized. 5. Describe medical problems identified and treated. 6. Reassessment of suicide risk Summary of Hospital Course: Patient was admitted to the psychiatry unit. Individual and group therapy were provided. Patient was stabilized on Depakote and Seroquel. He denies acute depression/anxiety/AH/VH/paranoia/delusions/SI/HI. He has not had any behavioral issues on the unit. No episodes of violence or aggression. He is psychiatrically stable for discharge at this time. - Diagnosis (1) Schizoaffective disorder Current Visit: Yes Status: Chronic - Final Diagnosis (DSM 5) Condition upon Discharge: STABLE DSM 5: Schizoaffective Disorder Disposition: HOME/ ROUTINE Follow-up Treatment Plan: Schizoaffective Disorder -Continue Depakote 500 mg PO BID; VPA 90.3 on 04/22/18 -Continue Seroquel 200 mg PO AM 400 mg PO HS -Individual and group therapy -Psychoeducation Prescriptions/Medication Reconciliation: Divalproex [Depakote DR(*BID*)] 500 mg PO BID #60 tcp Pantoprazole [Protonix EC Tab] 40 mg PO DAILY #30 ect Quetiapine Fumarate [Seroquel] 200 mg PO ASDIR #90 tablet - Smoking Cessation Smoking Cessation Medication prescribed: No Reason for not providing: Not indicated - Antipsychotic Medications Pt discharged on 2 or more routine antipsychotic medications: No
== END 2018-04-23 15:10 | disposition home or self-care (01) | DRG 430 ==
LOC: H.ER 15:08 → H.ERHOLD 18:36 → H.PSYCH 20:53
PROVIDERS: ADMIT Psychiatry & Neurology Psychiatry; ATTEND Psychiatry & Neurology Psychiatry
DX: F25.0 Schizoaffective disorder, bipolar type (principal); J44.9 Chronic obstructive pulmonary disease, unspecified; F41.9 Anxiety disorder, unspecified; E03.9 Hypothyroidism, unspecified; R45.850 Homicidal ideations; Z79.899 Other long term (current) drug therapy